=== PATIENT | female | born 1970 | race Caucasian/White ===

== ENCOUNTER → 2018-09-26 | Day surgery (SDC) | payer OTHER | END | disposition home or self-care (01) | LOC: JRADIR 10:27 → MERGE 10:27 | PROVIDERS: ATTEND Urology | PROC: BT00YZZ Plain Radiography of Bladder using Other Contrast (ICD-10-PCS; principal; 2018-09-26) | DX: N13.70 Vesicoureteral-reflux, unspecified (principal) | CPT/HCPCS: 51600; 74430-TC-FY; 76000-TC-FY; A4358 ==

== ENCOUNTER 2021-05-04 10:11 | Emergency (ER) | payer OTHER ==
[2021-05-04 10:24] VITALS: BP 122/79; PULSE 64; TEMP 98.3; BMI 27.0
== END 2021-05-04 11:52 | disposition home or self-care (01) ==
LOC: JERFT 10:11
DX: H10.12 Acute atopic conjunctivitis, left eye (principal)
CPT/HCPCS: 99281-25

== ENCOUNTER 2021-05-08 13:34 | Observation (INO) | payer OTHER ==
[2021-05-08 15:45] LABS: BASO % 0.8 % (0-2.0); EOS % 1.1 % (0-4.5); HEMATOCRIT 34.7 % (32.4-45.2); HEMOGLOBIN 11.2 GM/dL (10.7-15.3); LYMPH % 20.9 % (8-40); MCH 25.7 pg (25.7-33.7); MCHC 32.4 g/dl (32.0-36.0); MEAN CELL VOLUME 79.2 fl (80-96); MEAN PLT VOLUME 9.4 fl (7.5-11.1); MONO % 7.3 % (3.8-10.2); NEUT % 69.9 % (42.8-82.8); PLATELET COUNT 263 10^3/uL (134-434); RBC 4.38 M/mm3 (3.60-5.2); RDW 15.1 % (11.6-15.6); WHITE BLOOD COUNT 6.9 K/mm3 (4.0-10.0)
[2021-05-08 16:13] LABS: CALCIUM 9.5 mg/dL (8.5-10.1)
[2021-05-08 16:14] LABS: ALBUMIN 3.8 g/dl (3.4-5.0); BLOOD UREA NITROGEN 11.8 mg/dL (7-18)
[2021-05-08 16:18] LABS: BILIRUBIN,TOTAL 0.3 mg/dL (0.2-1); CREATININE 0.5 mg/dL (0.55-1.3)
[2021-05-08 16:19] LABS: TOT PROT 7.7 g/dl (6.4-8.2)
[2021-05-08 17:20] LABS: ERYTHROCYTE SEDIMENTATION RATE 20 mm/hr (0-30)
[2021-05-08] MEDS: INSULIN SLIDING SCALE (NOVOLOG) 1 VIAL SQ SCH (23:50)
[2021-05-09 01:58] VITALS: BMI 27.8
[2021-05-09] MEDS: INSULIN SLIDING SCALE (NOVOLOG) 1 VIAL SQ SCH ×4 (06:00→21:36)
[2021-05-09 06:58] LABS: BASO % 0.8 % (0-2.0); EOS % 2.7 % (0-4.5); HEMATOCRIT 33.8 % (32.4-45.2); HEMOGLOBIN 10.9 GM/dL (10.7-15.3); LYMPH % 25.5 % (8-40); MCH 25.7 pg (25.7-33.7); MCHC 32.4 g/dl (32.0-36.0); MEAN CELL VOLUME 79.4 fl (80-96); MEAN PLT VOLUME 9.5 fl (7.5-11.1); MONO % 7.9 % (3.8-10.2); NEUT % 63.1 % (42.8-82.8); PLATELET COUNT 242 10^3/uL (134-434); RBC 4.26 M/mm3 (3.60-5.2); RDW 14.7 % (11.6-15.6); WHITE BLOOD COUNT 6.1 K/mm3 (4.0-10.0)
[2021-05-09 07:16] LABS: CALCIUM 9.1 mg/dL (8.5-10.1)
[2021-05-09 07:17] LABS: MAGNESIUM 2.1 mg/dL (1.8-2.4)
[2021-05-09 07:19] LABS: ALBUMIN 3.5 g/dl (3.4-5.0)
[2021-05-09 07:20] LABS: CREATININE 0.6 mg/dL (0.55-1.3)
[2021-05-09 07:22] LABS: TOT PROT 7.2 g/dl (6.4-8.2)
[2021-05-09 07:24] LABS: BILIRUBIN,TOTAL 0.5 mg/dL (0.2-1)
[2021-05-09] MEDS: PATIENT'S OWN MEDICATION (NON-FORMULARY) (Olopatadine Hcl [Pataday] 2.5 ML Drops) OS SCH (13:21)
[2021-05-09] MEDS ORDERED: ACETAMINOPHEN 325 MG TABLET (FP) PO PRN (17:47)
[2021-05-10] MEDS: INSULIN SLIDING SCALE (NOVOLOG) 1 VIAL SQ SCH ×4 (06:51→22:19)
[2021-05-10] MEDS: PATIENT'S OWN MEDICATION (NON-FORMULARY) (Olopatadine Hcl [Pataday] 2.5 ML Drops) OS SCH (09:52)
[2021-05-10] MEDS: ATORVASTATIN CA 40 MG TABLET (FP) PO SCH (22:19)
[2021-05-11] MEDS: INSULIN SLIDING SCALE (NOVOLOG) 1 VIAL SQ SCH ×4 (06:26→22:56)
[2021-05-11 07:02] LABS: BASO % 0.6 % (0-2.0); EOS % 2.9 % (0-4.5); HEMATOCRIT 33.9 % (32.4-45.2); HEMOGLOBIN 11.2 GM/dL (10.7-15.3); LYMPH % 22.2 % (8-40); MCHC 33.1 g/dl (32.0-36.0); MEAN CELL VOLUME 78.5 fl (80-96); MEAN PLT VOLUME 9.6 fl (7.5-11.1); MONO % 7.2 % (3.8-10.2); NEUT % 67.1 % (42.8-82.8); PLATELET COUNT 251 10^3/uL (134-434); RBC 4.31 M/mm3 (3.60-5.2); WHITE BLOOD COUNT 5.7 K/mm3 (4.0-10.0)
[2021-05-11 07:32] LABS: CALCIUM 8.9 mg/dL (8.5-10.1)
[2021-05-11 07:33] LABS: ALBUMIN 3.6 g/dl (3.4-5.0)
[2021-05-11 07:36] LABS: CREATININE 0.5 mg/dL (0.55-1.3)
[2021-05-11 07:38] LABS: BILIRUBIN,TOTAL 0.7 mg/dL (0.2-1); TOT PROT 7.1 g/dl (6.4-8.2)
[2021-05-11] MEDS: PATIENT'S OWN MEDICATION (NON-FORMULARY) (Olopatadine Hcl [Pataday] 2.5 ML Drops) OS SCH (10:08)
[2021-05-11] MEDS: ATORVASTATIN CA 40 MG TABLET (FP) PO SCH (22:55)
[2021-05-12] MEDS: INSULIN SLIDING SCALE (NOVOLOG) 1 VIAL SQ SCH ×2 (06:08→12:09)
[2021-05-12] MEDS: PATIENT'S OWN MEDICATION (NON-FORMULARY) (Olopatadine Hcl [Pataday] 2.5 ML Drops) OS SCH (09:06)
[2021-05-12 13:20] VITALS: BP 113/74; PULSE 72; TEMP 98.5
== END 2021-05-12 14:31 | disposition home or self-care (01) ==
LOC: JER 13:34 → JERBED 18:19 → INTOOBSV 18:19 → J4S 05-09 00:26
PROVIDERS: ADMIT Internal Medicine; ATTEND Family Medicine
DX: H02.402 Unspecified ptosis of left eyelid (principal); H49.9 Unspecified paralytic strabismus; H53.2 Diplopia; G70.00 Myasthenia gravis without (acute) exacerbation; E11.9 Type 2 diabetes mellitus without complications; Z20.822 Contact with and (suspected) exposure to COVID-19; Z88.8 Allergy status to other drugs, medicaments and biological substances
CPT/HCPCS: 36415; 70450-TC; 70496-TC; 70498-TC; 71046-TC-FY; 71250-TC; 80053; 80061; 82607; 82962; 83036; 83519; 83735; 85025; 85651; 86038; 86140; 86618; 93005; 93010; 99285-25; C9803; G0378; U0003; U0005

== ENCOUNTER 2021-12-31 23:29 | Emergency (ER) | payer OTHER ==
[2021-12-31 23:41] VITALS: BP 124/78; PULSE 78; TEMP 99; BMI 28.3
[2022-01-01 01:49] LABS: BLOOD UREA NITROGEN 18.1 mg/dL (7-18)
[2022-01-01 01:50] LABS: ALBUMIN 3.7 g/dl (3.4-5.0); BASO % 0.6 % (0-2.0); EOS % 2.3 % (0-4.5); HEMATOCRIT 40.2 % (32.4-45.2); HEMOGLOBIN 13.3 GM/dL (10.7-15.3); LYMPH % 29.3 % (8-40); MCH 28.4 pg (25.7-33.7); MEAN PLT VOLUME 10.4 fl (7.5-11.1); MONO % 8.2 % (3.8-10.2); NEUT % 59.6 % (42.8-82.8); PLATELET COUNT 186 10^3/uL (134-434); RBC 4.67 M/mm3 (3.60-5.2); RDW 15.2 % (11.6-15.6); WHITE BLOOD COUNT 6.5 K/mm3 (4.0-10.0)
[2022-01-01 01:53] LABS: CREATININE 0.5 mg/dL (0.55-1.3)
[2022-01-01 01:54] LABS: TOT PROT 6.9 g/dl (6.4-8.2)
== END 2022-01-01 02:41 | disposition home or self-care (01) ==
LOC: JER 23:29
DX: R07.9 Chest pain, unspecified (principal); Z20.822 Contact with and (suspected) exposure to COVID-19
CPT/HCPCS: 0241U-QW; 36415; 71046-TC-FY; 80053; 84484; 85025; 93005; 93010; 99285-25

== ENCOUNTER 2024-01-13 11:41 | Emergency (ER) | payer OTHER ==
[2024-01-13 11:54] VITALS: BP 122/79; PULSE 63; RESP 18; TEMP 98.4; BMI 25.4
[2024-01-13] MEDS: LIDOCAINE 4% PATCH TP ONE (15:58)
[2024-01-13] MEDS: SODIUM PHOSPHATE/NA BIPHOS 133 ML ENEMA PR ONE (15:58)
[2024-01-13] MEDS ORDERED: LIDOCAINE 4% PATCH TP ONE (15:59)
[2024-01-13] MEDS ORDERED: MAGNESIUM CITRATE 300 ML BOTTLE ONE (16:51)
[2024-01-13] MEDS: MAGNESIUM CITRATE 300 ML BOTTLE PO ONE (16:53)
[2024-01-13] MEDS ORDERED: LIDOCAINE PATCH REMOVAL MC SCH (22:00)
== END 2024-01-13 17:22 | disposition home or self-care (01) ==
LOC: JER 11:41
DX: K59.00 Constipation, unspecified (principal); R10.12 Left upper quadrant pain
CPT/HCPCS: 99283-25